=== PATIENT | male | born 1995 ===

== ENCOUNTER 2017-02-08 14:00 | Emergency (ER) | payer MEDICAID ==
[2017-02-08 14:19] VITALS: BP 119/79; PULSE 82; RESP 18; TEMP 99.3; O2SAT 100
--- NOTE | 2017-02-08 14:50 | C.PDOC ---
History Of Present Illness A 21 year old male, who denies any significant past medical history, presents to the emergency department for a itchy rash on his lower face, which gradually began since earlier this morning. The patient states he noticed the rash this morning after shaving and putting on a new cream. The patient denies sore throat , drooling, dyspnea, dysphagia, wheezing, SOB, or any other complaints at this time. Ambulate to ED for evaluation, not in any apparent distress. Time Seen by Provider: 02/08/17 14:27 Chief Complaint (Nursing): Abnormal Skin Integrity History Per: Patient History/Exam Limitations: no limitations Onset/Duration Of Symptoms: Hrs (x earlier today ), Gradual Current Symptoms Are (Timing): Still Present Quality Of Symptoms: Itching Past Medical History Vital Signs: Last Vital Signs Temp 99.3 F 02/08/17 14:16 Pulse 82 02/08/17 14:16 Resp 18 02/08/17 14:16 BP 119/79 02/08/17 14:16 Pulse Ox 100 02/08/17 15:08 Family History: States: No Known Family Hx - Social History Hx Alcohol Use: No Hx Substance Use: No Review Of Systems Except As Marked, All Systems Reviewed And Found Negative. ENT: Negative for: Throat Pain, Throat Swelling, Other (drooling ) Respiratory: Negative for: Wheezing, Other (dyspnea ) Skin: Positive for: Rash (itchy rash on lower face ) Physical Exam - Physical Exam Appears: Well, Non-toxic, No Acute Distress Skin: Normal Color, Warm, Rash (diffuse erythematous papular rash to lower face with mild edema. No cellulitis) Head: Normacephalic Eye(s): bilateral: PERRL Ear(s): Bilateral: Normal Nose: No Flaring, No Discharge Oral Mucosa: Moist, No Drooling Tongue: Normal Appearing, No Swelling Lips: Normal Appearing, No Swelling Gingiva: Normal Appearing Throat: Normal, No Exudate, No Drooling, Other (Uvula midline, no edema.) Neck: Supple Cardiovascular: No JVD Respiratory: No Decreased Breath Sounds, No Accessory Muscle Use, No Stridor, No Wheezing Extremity: No Pedal Edema Neurological/Psych: Oriented x3, Normal Speech ED Course And Treatment O2 Sat by Pulse Oximetry: 100 Pulse Ox Interpretation: Normal Progress Note: On re-evaluation, pt is afebrile, hemodynamicaly stable. Non- toxic. Tolerate Po well in ED. PUlseOx 100% RA. ENT: no acute findings. Uvual midline, no edema. Neck: Supple. Lungs: CTA B/L, BS equal B/L. Skin: (+) rash c/w contact dermatitis. No evidence of angioedema. Pt advised. ref. 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 return i any new changes. Medical Decision Making Medical Decision Making: Treatment Plan: -- Benadryl, Prednisone Progress Notes: Disposition Counseled Patient/Family Regarding: Diagnosis, Need For Followup, Rx Given - Disposition Referrals: [facility] [Outside] Disposition: HOME/ ROUTINE Disposition Time: 14:47 Condition: STABLE Additional Instructions: Avoid cram that possible cause allergic reaction or skin irritation Take medication as prescribed Follow up with PMD in 2-3 days for re-evaluation. Return to ED if any worsening or new changes. Prescriptions: DiphenhydrAMINE [Benadryl] 25 mg PO BID #10 cap Hydrocortisone 0.5% [Cortizone 0.5%] 1 appl EXT DAILY #1 tube Prednisone [Deltasone] 20 mg PO DAILY #3 tablet Instructions: Contact Dermatitis (ED) Forms: [employer] ([place]est[place]) - Clinical Impression Clinical Impression: Contact dermatitis - Scribe Statement The provider has reviewed the documentation as recorded by the Scribe Maya Dolan All medical record entries made by the Scribe were at my direction and personally dictated by me. I have reviewed the chart and agree that the record accurately reflects my personal performance of the history, physical exam, medical decision making, and the department course for this patient. I have also personally directed, reviewed, and agree with the discharge instructions and disposition.
== END 2017-02-08 15:05 | disposition home or self-care (01) ==
LOC: C.ER 14:12
DX: L25.9 Unspecified contact dermatitis, unspecified cause (principal)